=== PATIENT | male | born 1985 | race Asian ===

== ENCOUNTER 2016-10-03 13:13 | Outpatient (CLI) | payer OTHER ==
--- NOTE | 2016-10-03 14:44 | RAD ---
LEFT HAND TWO VIEWS 10/03/16 HISTORY: Left hand pain. Inflammatory polyarthropathy. FINDINGS/IMPRESSION: No fracture, dislocation, bony destruction or erosive changes are seen. POS: [facility]
[2016-10-03 15:42] LABS: #Basophils 0.1 thou/uL (0.0-0.2); #Eosinphils 0.3 thou/uL (0.0-0.7); #Lymphocytes 2.2 thou/uL (1.20-3.40); #Monocytes 0.5 thou/uL (0.11-0.59); #Neutrophils 5.9 thou/uL (1.40-6.50); %Basophils 0.6 % (0.0-1.0); %Eosinophils 3.5 % (0.0-10.0); %Monocytes 5.2 % (0.0-10.0); %Neutrophils 65.7 % (42.0-75.0); Hemoglobin 13.4 g/dL (14.0-18.0); Mean Corpuscular HGB CONC 32.6 g/dL (32.0-36.0); Mean Corpuscular Hemoglobin 25.3 pg (27.0-31.0); Mean Corpuscular Volume 77.7 fl (80.0-94.0); Mean Platelet Volume 7.1 fL (7.4-10.4); Platelet Count 297 thou/uL (130-400); RBC Distribution Width 12.3 % (11.5-14.5); White Blood Cell (WBC) Count 8.9 thou/uL (4.8-10.8)
--- NOTE | 2016-10-03 16:16 | RAD ---
RIGHT HAND 2 VIEWS: HISTORY: Inflammatory polyarthropathy, right hand pain. FINDINGS/IMPRESSION: No fracture, dislocation, bone destruction, or erosive changes are seen. POS: [facility]
[2016-10-03 16:17] LABS: ALT (SGPT) 54 U/L (8-55); AST (SGOT) 31 U/L (5-34); Albumin 4.8 g/dL (3.5-5.0); Alkaline Phosphatase 119 U/L (40-150); Anion Gap 17 mmol/L (10-20); BUN (Urea Nitrogen) 14 mg/dL (8.9-20.6); Bilirubin, Total 0.3 mg/dL (0.2-1.2); CRP (Inflammatory) 1.36 mg/dL (= or < 0.5); Calc. Creatinine Clearance 0 mL/min (70-130); Carbon Dioxide 25 mmol/L (22-29); Chloride 103 mmol/L (98-107); Estimated GFR-MDRD 74; Globulin 2.8 g/dL (2.4-3.5); Glucose 116 mg/dL (70-105); Protein, Total 7.6 g/dL (6.0-8.3); Sodium 141 mmol/L (136-145)
--- NOTE | 2016-10-03 16:26 | RAD ---
RIGHT FOOT 3 VIWES: HISTORY: Right foot pain, inflammatory polyarthropathy. FINDINGS/IMPRESSION: No fracture, dislocation, bone destruction, or erosive changes are seen. No calcaneal spurs are pre sent. POS: [facility]
--- NOTE | 2016-10-03 16:27 | RAD ---
LEFT FOOT 3 VIEWS: HISTORY: Left foot pain, inflammatory polyarthropathy. FINDINGS/IMPRESSION: No fracture, dislocation, bony destruction, or erosive changes are seen. No calcaneal spurs are urban ntified. POS: [facility]
--- NOTE | 2016-10-03 16:32 | RAD ---
AP PELVIS: HISTORY: Inflammatory polyarthropathy, pelvic and hip pain. FINDINGS: No fracture, dislocation, or bony destruction is seen. IMPRESSION: No fracture, dislocation, bony destruction, or erosive changes are identified. POS: [facility]
--- NOTE | 2016-10-03 17:35 | RAD ---
EXAM: LUMBAR SPINE 3 VIEWS: HISTORY: Inflammatory polyarthropathy. COMPARISON: None. FINDINGS: Joint space is preserved. No fractures or malalignment. Straightening of normal lumbar lordosis li arnel due to patient position. There are no erosive or destructive changes. No significant osteophy te formation. IMPRESSION: Unremarkable lumbar spine 3 views. POS: [facility]
== END 2016-10-03 13:14 | disposition home or self-care (01) ==
LOC: NAV LAB 13:13
PROVIDERS: ATTEND Allergy & Immunology Allergy
DX: M06.4 Inflammatory polyarthropathy (principal); M25.571 Pain in right ankle and joints of right foot; M25.572 Pain in left ankle and joints of left foot; M25.541 Pain in joints of right hand; M25.542 Pain in joints of left hand; M54.5 Low back pain; R10.2 Pelvic and perineal pain
CPT/HCPCS: 36415; 72100; 72170; 80053; 85025; 85652; 86038; 86140; 86160; 86200; 86225; 86235; 86430; 86812

== ENCOUNTER 2016-12-06 12:07 | Outpatient (CLI) | payer OTHER ==
[2016-12-06 16:26] LABS: #Basophils 0.1 thou/uL (0.0-0.2); #Eosinphils 0.3 thou/uL (0.0-0.7); #Lymphocytes 2.6 thou/uL (1.20-3.40); #Monocytes 0.7 thou/uL (0.11-0.59); #Neutrophils 4.1 thou/uL (1.40-6.50); %Basophils 0.9 % (0.0-1.0); %Eosinophils 4.1 % (0.0-10.0); %Monocytes 8.8 % (0.0-10.0); %Neutrophils 52.2 % (42.0-75.0); Hemoglobin 13.5 g/dL (14.0-18.0); Mean Corpuscular HGB CONC 31.5 g/dL (32.0-36.0); Mean Corpuscular Hemoglobin 24.4 pg (27.0-31.0); Mean Corpuscular Volume 77.6 fl (80.0-94.0); Mean Platelet Volume 7.2 fL (7.4-10.4); Platelet Count 271 thou/uL (130-400); RBC Distribution Width 12.3 % (11.5-14.5); Red Blood Cell (RBC) Count 5.53 mill/uL (4.70-6.10); White Blood Cell (WBC) Count 7.8 thou/uL (4.8-10.8)
[2016-12-06 16:27] LABS: Hypochromia SLIGHT = 6-15 cells (100X) (0-5/hpf); MDiff Complete? YES; Microcytosis SLIGHT = 6-15 cells (100X) (0-5/hpf); PLT Morphology Comment Appears Adequate
== END 2016-12-06 12:08 | disposition home or self-care (01) ==
LOC: NAV LAB 12:07
PROVIDERS: ATTEND Allergy & Immunology Allergy
DX: M06.4 Inflammatory polyarthropathy (principal); M25.50 Pain in unspecified joint
CPT/HCPCS: 36415; 85025; 85652; 86140

== ENCOUNTER 2017-10-12 14:49 | Outpatient (CLI) | payer OTHER ==
[2017-10-12 15:22] LABS: ALT (SGPT) 83 U/L (8-55); AST (SGOT) 40 U/L (5-34); Albumin 4.7 g/dL (3.5-5.0); Alkaline Phosphatase 72 U/L (40-150); Anion Gap 14 mmol/L (10-20); BUN (Urea Nitrogen) 14 mg/dL (8.9-20.6); Bilirubin, Total 0.2 mg/dL (0.2-1.2); Calc. Creatinine Clearance 0 mL/min (70-130); Calcium 9.5 mg/dL (7.8-10.44); Carbon Dioxide 24 mmol/L (22-29); Chloride 109 mmol/L (98-107); Estimated GFR-MDRD Greater than 90; Globulin 2.6 g/dL (2.4-3.5); Glucose 86 mg/dL (70-105); Potassium 4.5 mmol/L (3.5-5.1); Protein, Total 7.3 g/dL (6.0-8.3); Sodium 142 mmol/L (136-145)
[2017-10-12 20:31] LABS: CRP (Inflammatory) Less than 0.50 mg/dL (= or < 0.5)
[2017-10-12 22:22] LABS: #Basophils 0.1 thou/uL (0.0-0.2); #Eosinphils 0.3 thou/uL (0.0-0.7); #Lymphocytes 2.1 thou/uL (1.20-3.40); #Monocytes 0.6 thou/uL (0.11-0.59); #Neutrophils 3.6 thou/uL (1.40-6.50); %Basophils 1.1 % (0.0-1.0); %Eosinophils 4.8 % (0.0-10.0); %Lymphocytes 30.9 % (21.0-51.0); %Monocytes 9.6 % (0.0-10.0); %Neutrophils 53.6 % (42.0-75.0); Hypochromia SLIGHT = 6-15 cells (100X) (0-5/hpf); MDiff Complete? YES; Mean Corpuscular HGB CONC 30.5 g/dL (32.0-36.0); Mean Corpuscular Hemoglobin 24.1 pg (27.0-31.0); PLT Morphology Comment Appears Adequate; Platelet Count 261 thou/uL (130-400); RBC Distribution Width 12.6 % (11.5-14.5); White Blood Cell (WBC) Count 6.7 thou/uL (4.8-10.8)
== END 2017-10-12 14:50 | disposition home or self-care (01) ==
LOC: NAV LABSP 14:49
PROVIDERS: ATTEND Allergy & Immunology Allergy
DX: M06.4 Inflammatory polyarthropathy (principal)
CPT/HCPCS: 36415; 80053; 85025; 85652; 86140

== ENCOUNTER 2019-08-18 12:19 | Outpatient (CLI) | payer OTHER ==
[2019-08-19 10:47] LABS: ALT (SGPT) 130 U/L (8-55); AST (SGOT) 40 U/L (5-34); Albumin 4.6 g/dL (3.5-5.0); Alkaline Phosphatase 95 U/L (40-110); Anion Gap 14 mmol/L (10-20); BUN (Urea Nitrogen) 11 mg/dL (8.9-20.6); Bilirubin, Total 0.2 mg/dL (0.2-1.2); Calc. Creatinine Clearance 0 mL/min (70-130); Calcium 9.3 mg/dL (7.8-10.44); Carbon Dioxide 25 mmol/L (22-29); Chloride 107 mmol/L (98-107); Estimated GFR-MDRD Greater than 90; Globulin 2.9 g/dL (2.4-3.5); Glucose 99 mg/dL (70-105); Potassium 4.2 mmol/L (3.5-5.1); Protein, Total 7.5 g/dL (6.0-8.3); Sodium 142 mmol/L (136-145)
[2019-08-19 10:48] LABS: #Basophils 0.1 thou/uL (0.0-0.2); #Eosinphils 0.3 thou/uL (0.0-0.7); #Lymphocytes 2.1 thou/uL (1.20-3.40); #Monocytes 0.7 thou/uL (0.11-0.59); #Neutrophils 3.3 thou/uL (1.40-6.50); %Basophils 1.6 % (0.0-1.0); %Monocytes 10.6 % (0.0-10.0); %Neutrophils 51.8 % (42.0-75.0); Hemoglobin 13.2 g/dL (14.0-18.0); Mean Corpuscular HGB CONC 31.2 g/dL (32.0-36.0); Mean Corpuscular Hemoglobin 25.6 pg (27.0-31.0); Mean Corpuscular Volume 82.1 fL (78.0-98.0); Mean Platelet Volume 7.3 fL (7.4-10.4); Platelet Count 259 thou/uL (130-400); RBC Distribution Width 14.1 % (11.5-14.5); Red Blood Cell (RBC) Count 5.17 mill/uL (4.70-6.10); White Blood Cell (WBC) Count 6.5 thou/uL (4.8-10.8)
== END 2019-08-18 12:20 | disposition home or self-care (01) ==
LOC: NAV LAB 12:19
DX: Z00.00 Encounter for general adult medical examination without abnormal findings (principal)
CPT/HCPCS: 36415; 80053; 85025

== ENCOUNTER 2019-12-23 12:57 | Outpatient (CLI) | payer OTHER ==
[2019-12-23 13:52] LABS: ALT (SGPT) 46 U/L (8-55); AST (SGOT) 40 U/L (5-34); Albumin 4.8 g/dL (3.5-5.0); Alkaline Phosphatase 77 U/L (40-110); Anion Gap 14 mmol/L (10-20); BUN (Urea Nitrogen) 11 mg/dL (8.9-20.6); Bilirubin, Total 0.2 mg/dL (0.2-1.2); CRP (Inflammatory) Less than 0.50 mg/dL (= or < 0.5); Calc. Creatinine Clearance 0 mL/min (70-130); Calcium 9.6 mg/dL (7.8-10.44); Carbon Dioxide 25 mmol/L (22-29); Chloride 104 mmol/L (98-107); Estimated GFR-MDRD 74; Globulin 2.8 g/dL (2.4-3.5); Glucose 118 mg/dL (70-105); Potassium 4.4 mmol/L (3.5-5.1); Protein, Total 7.6 g/dL (6.0-8.3); Sodium 139 mmol/L (136-145)
[2019-12-23 14:27] LABS: #Basophils 0.1 thou/uL (0.0-0.2); #Eosinphils 0.2 thou/uL (0.0-0.7); #Lymphocytes 1.8 thou/uL (1.20-3.40); #Monocytes 0.5 thou/uL (0.11-0.59); #Neutrophils 4.4 thou/uL (1.40-6.50); %Eosinophils 3.1 % (0.0-10.0); %Lymphocytes 25.5 % (21.0-51.0); %Monocytes 7.5 % (0.0-10.0); %Neutrophils 62.9 % (42.0-75.0); Hemoglobin 13.9 g/dL (14.0-18.0); Mean Corpuscular HGB CONC 30.4 g/dL (32.0-36.0); Mean Corpuscular Hemoglobin 24.9 pg (27.0-31.0); Mean Corpuscular Volume 81.9 fL (78.0-98.0); Mean Platelet Volume 8.6 fL (7.4-10.4); Platelet Count 245 thou/uL (130-400); RBC Distribution Width 12.2 % (11.5-14.5); Red Blood Cell (RBC) Count 5.57 mill/uL (4.70-6.10)
[2019-12-23 14:28] LABS: Hypochromia SLIGHT = 6-15 cells (100X) (0-5/hpf); MDiff Complete? YES; Microcytosis SLIGHT = 6-15 cells (100X) (0-5/hpf); Platelet Morphology Comment Appears Adequate
== END 2019-12-23 12:58 | disposition home or self-care (01) ==
LOC: NAV LAB 12:57
PROVIDERS: ATTEND Allergy & Immunology Allergy
DX: M06.4 Inflammatory polyarthropathy (principal)
CPT/HCPCS: 36415; 80053; 85025; 85652; 86140